=== PATIENT | male | born 1975 | race Caucasian/White ===

== ENCOUNTER 2018-10-13 13:16 | Emergency (ER) | payer BC ==
--- NOTE | 2018-10-13 13:27 | EDM.PDOC ---
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 Both hands were initially caught he was able to get his left hand released. His right hand was pinched between the pay fats and oils loader and tractor for about 30 minutes he believes. He was finally able to get it release staying presents to emergency room for evaluation. He has some abrasions and cuts along the long and ring finger on the right side mild abrasions on the left hand. He is able to move all fingers without significant difficulty is no significant her clinical angulation or or gross deformity of the hand. No evidence of open fracture. His hands are fairly covered and Sushil grime due to the nature of his occupation. He does have intact sensation to light touch. No other complaints are voiced. 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 [No Known Home Meds] 10/13/18 [History] Review of Systems - Review of Systems Review Of Systems: ROS reveals no pertinent complaints other than HPI. ED EXAM, GENERAL - Physical Exam Exam: See Below Exam Limited By: No Limitations General Appearance: Alert, WD/WN, No Apparent Distress Throat/Mouth: Normal Voice Head: Atraumatic, Normocephalic Neck: Normal Inspection Respiratory/Chest: No Respiratory Distress Extremities: Other (osseous skeletal examination shows he has intact sensation to light touch at the distal tips of the finger appeared there is a mild ungual hematoma over the right long finger nail up. There is a deep abrasions just overlying the DIP joint of the right ring finger. He has full flexion full extension of all the fingers. There is just mild abrasions overlying the left hand. Able to move all fingers of the left hand without difficulty. 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 Thorough evaluation after the wounds were clean do not show evidence of this being an open fracture. Xeroform was applied over the fingers long finger and ring an aluminum form splint immobilizing the DIP joint right ring finger was applied. 2 inch Bala was used for dressing. Departure - Departure Time of Disposition: 14:06 Disposition: Still A Patient 30 Condition: Good Clinical Impression: Subungual hematoma of fingernail Fracture of metacarpal bone Qualifiers: Encounter type: initial encounter Metacarpal bone: fourth Fracture type: closed Metacarpal location: neck Fracture alignment: nondisplaced Laterality: right Qualified Code(s): S62.364A - Nondisplaced fracture of neck of fourth metacarpal bone, right hand, initial encounter for closed fracture - Discharge Information Forms: ED Department Discharge - My Orders Last 24 Hours: My Active Orders 10/13/18 13:28 Hand Comp Min 3V Rt [CR] Stat - Assessment/Plan Last 24 Hours: My Active Orders 10/13/18 13:28 Hand Comp Min 3V Rt [CR] Stat Assessment:: Right ring finger distal middle phalanx intra-articular fracture right long finger nail hematoma Plan: 1. Both hands were cleaned up with saline and peroxide and Betadine solution. Skin abrasions and wounds were dressed with Xeroform and covered with 2 inch Baal over the right long and ring finger. AlumaFoam splint was used to immobilize the right ring finger DIP joint. 2.because this fracture is intra-articular recommend follow-up with orthopedics early next week. 3. Place the patient on Duricef 500 mg twice a day prophylaxis as his hands were quite contaminated with dirt and grease.
--- NOTE | 2018-10-13 18:15 | CR ---
[id number] RAD/RAD Hand Right 3V EXAM: 3 VIEWS RIGHT HAND. INDICATION: TRAUMA, PINCHED FINGERS IN PAYLOADER WHILE ATTACHING TO COMPARISON: None. DISCUSSION: Acute nondisplaced fracture of the distal aspect of the middle 4th phalanx. The fracture line extends into the distal interphalangeal joint. No other fractures are identified. No dislocation. IMPRESSION: 1. Acute fracture of the middle 4th phalanx as described above. Garrett Owens DO 10/13/18 1813 Thank you for allowing us to participate in the care of your patient.
== END 2018-10-13 14:20 | disposition home or self-care (01) ==
LOC: KA.ED 13:16
DX: S62.364A Nondisplaced fracture of neck of fourth metacarpal bone, right hand, initial encounter for closed fracture (principal); S60.131A Contusion of right middle finger with damage to nail, initial encounter; W23.0XXA Caught, crushed, jammed, or pinched between moving objects, initial encounter
CPT/HCPCS: 73130-RT; 99283-25